=== PATIENT | female | born 1960 | race Caucasian/White ===

== ENCOUNTER 2017-07-23 19:55 | Observation (INO) | payer BC ==
[~2017-07-23] VITALS: Ht 162.6 cm; Wt 79.0 kg
[2017-07-23 22:18] LABS: BASOPHIL (%) 0.3 % (0-1); BASOPHIL COUNT 0.1 K/uL (0-0.1); EOSINOPHIL (%) 0.3 % (0-5); EOSINOPHIL COUNT 0.1 K/uL (0-0.3); IMMATURE GRANULOCYTE (%) 0.6 % (0.0-0.7); LYMPHOCYTE (%) 9.6 % (15-42); MONOCYTE (%) 5.3 % (3-12); MONOCYTE COUNT 1.6 K/uL (0-0.8); NEUTROPHIL (%) 83.9 % (45-76); NEUTROPHIL COUNT 25.9 K/uL (1.8-6.4); PLATELET COUNT 372 K/uL (156-360)
[2017-07-23 22:29] LABS: ALBUMIN 3.8 g/dL (3.2-4.8); CHLORIDE 100 mEq/L (99-109); POTASSIUM 4.1 mEq/L (3.7-5.4); SODIUM 140 mEq/L (136-147)
[2017-07-23 22:32] LABS: GLUCOSE 110 mg/dL (70-99); TOTAL PROTEIN 6.4 g/dL (6.4-8.3)
[2017-07-23 22:34] LABS: TOTAL BILIRUBIN 0.3 mg/dL (0.0-1.0)
[2017-07-23 22:35] LABS: ALKALINE PHOSPHATASE 100 IU/L (3-129); CREATININE 0.7 mg/dL (0.6-1.3); GFR ESTIMATE (CALCULATED) > 59 mL/min/
[2017-07-23 22:36] LABS: UREA NITROGEN (BUN) 16 mg/dL (9-23)
[2017-07-23 22:37] LABS: AST (GOT) 14 IU/L (2-34)
[2017-07-23 22:38] LABS: ALT (GPT) 18 IU/L (3-49)
[2017-07-23 22:42] LABS: TROP-I INTERPRETATION NEGATIVE; TROPONIN-I < 0.01 ng/mL (0.0-0.30)
[2017-07-23 22:45] LABS: HEMATOCRIT 45.7 % (36.0-46.0); HEMOGLOBIN 15.2 G/DL (11.9-15.5); MCH 30.1 PG (29.0-34.0); MCHC 33.3 G/DL (30.0-36.0); MCV 90.5 FL (83-99); RBC DIS.WIDTH-CV 13.5 % (11.8-14.6); RBC DIS.WIDTH-SD 45.1 % (39-53); RED BLOOD COUNT 5.05 M/uL (3.80-5.20)
[2017-07-23 22:49] LABS: WHITE BLOOD COUNT 30.5 K/uL (4.1-10.2)
[2017-07-23] MEDS ORDERED: PRIMATENE ASTH1 EACH PO (23:58)
[2017-07-23] MEDS ORDERED: OCUVITE TABLET1 EACH PO (23:59)
[2017-07-23] MEDS ORDERED: PROBIOTIC1 EAC1 PO (23:59)
[2017-07-23] MEDS ORDERED: ALKA-SELTZER D1 EACH PO (23:59)
[2017-07-23] MEDS ORDERED: VITAMIN D31000 UNIT PO (23:59)
[2017-07-24] MEDS ORDERED: GLUCOSAMINE CH1 EAC1 PO
[2017-07-24 00:23] LABS: APPEARANCE CLOUDY ((CLEAR)); BILIRUBIN NEGATIVE; BLOOD NEGATIVE; COLOR YELLOW ((YELLOW)); GLUCOSE (STRIP) NEGATIVE; KETONES NEGATIVE; LEUKOCYTES NEGATIVE; NITRITE NEGATIVE; PROTEIN (STRIP) NEGATIVE; SPECIFIC GRAVITY 1.017 (1.000-1.030); UROBILINOGEN 0.2 MG/DL (0.2-1.0)
[2017-07-24 01:43] LABS: BACTERIA RARE /HPF; EPITHELIAL CELLS 2+ /HPF; MUCUS 2+ /LPF; UCUL ADDED? NO; URIC ACID CRYSTALS 4+ /HPF; WHITE BLOOD CELLS 0-5 /HPF (0-5)
[2017-07-24 06:00] VITALS: BP 114/55
[2017-07-24 07:20] LABS: TROP-I INTERPRETATION NEGATIVE; TROPONIN-I < 0.01 ng/mL (0.0-0.30)
[2017-07-24 07:44] VITALS: BP 124/81
[2017-07-24 08:30] LABS: HEMATOCRIT 43.8 % (36.0-46.0); HEMOGLOBIN 13.8 G/DL (11.9-15.5); MCH 28.6 PG (29.0-34.0); MCHC 31.5 G/DL (30.0-36.0); MCV 90.9 FL (83-99); PLATELET COUNT 383 K/uL (156-360); RBC DIS.WIDTH-CV 13.6 % (11.8-14.6); RED BLOOD COUNT 4.82 M/uL (3.80-5.20); WHITE BLOOD COUNT 15.9 K/uL (4.1-10.2)
[2017-07-24 08:46] LABS: CHLORIDE 101 MEQ/L (99-109); CREATININE 0.6 MG/DL (0.6-1.3); GFR ESTIMATE (CALCULATED) > 59 mL/min/; GLUCOSE 101 mg/dL (70-99); POTASSIUM 4.5 MEQ/L (3.7-5.4); SODIUM 141 MEQ/L (136-147); UREA NITROGEN (BUN) 12 mg/dL (9-23)
[2017-07-24 10:38] LABS: ABS NEUTROPHIL COUNT 11.2; ATYPICAL LYMPHOCYTE 3.5 %; BAND NEUTROPHILS 1.8 % (0-8.0); EOSINOPHIL ABS CT 0.3; EOSINOPHILS 1.8 % (0-5.0); LYMPHOCYTES 18.4 % (15.0-45.0); MONOCYTES 6.1 % (0-9.0); PLAT.SUFFICIENCY ADEQUATE; SEG.NEUTROPHILS 68.4 % (46.0-76.0)
[2017-07-24 11:35] VITALS: BP 120/78
[2017-07-24 14:27] LABS: BICARBONATE 33.4 mEq/L (22-26); CARBOXY HGB 2.7 % (0-5); METHEMOGLOBIN 1.5 % (0-1.5); PCO2 54 mm Hg (35-45); PO2 69 mm Hg (80-100)
[2017-07-24 14:28] LABS: COMMENTS - BLOOD GASES A+C+; DEVICE NC; O2 FLOW 1 L/MIN; SITE RR; TOTAL RESP RATE 13 resp/min
[2017-07-24 15:35] VITALS: BP 126/68
[2017-07-24] MEDS ORDERED: PREDNISONE10 MG PO (15:56)
[2017-07-24] MEDS ORDERED: DUONEB 2.5-0.5 M3 ML AEROSOL (15:56)
[2017-07-24] MEDS ORDERED: SPIRIVA1 INHALATI IH (15:56)
[2017-07-24] MEDS ORDERED: ZITHROMAX Z-PA250 MG PO (15:56)
== END 2017-07-24 17:23 | disposition home or self-care (01) ==
LOC: EME 19:55 → 5SOUTH 07-24 04:37 → EDOF 07-24 04:37 → 5SOUTH 07-24 04:37 → ENRESERV 07-24 04:41 → 5SOUTH 07-24 05:53 → ENPENDDIS 07-24 16:17 → 5SOUTH 07-24 16:20
PROVIDERS: Emergency Medicine; Hospitalist; Physician Assistant Medical
DX: R55 Syncope and collapse (principal); D72.829 Elevated white blood cell count, unspecified; R09.02 Hypoxemia; J43.9 Emphysema, unspecified; E27.9 Disorder of adrenal gland, unspecified; Z86.19 Personal history of other infectious and parasitic diseases; F17.200 Nicotine dependence, unspecified, uncomplicated; I27.20 Pulmonary hypertension, unspecified; Z82.49 Family history of ischemic heart disease and other diseases of the circulatory system; Z83.3 Family history of diabetes mellitus; Z88.5 Allergy status to narcotic agent
CPT/HCPCS: 36600; 71046; 71275; 80048; 80053; 81003; 82803; 83605; 84484; 85007; 85025; 85027; 85048; 85379; 87040; 93005; 93306; 93970; 94640; 99202; 99281; 99284; G0378; J1644; J1956; J2405; J7030